=== PATIENT | female | born 1995 | race African-American/Black ===

== ENCOUNTER 2018-02-04 09:37 | Emergency (ER) | payer MEDICAID ==
[~2018-02-04] VITALS: Ht 157.5 cm; Wt 88.6 kg
[2018-02-04 09:39] VITALS: Ht 157.5 cm; Wt 88.6 kg
[2018-02-04] MEDS ORDERED: TORADOL10 MG PO (11:06)
[2018-02-04 11:30] VITALS: BP 118/68
== END 2018-02-04 11:29 | disposition home or self-care (01) ==
LOC: D.ER 09:37
DX: M54.2 Cervicalgia (principal); R07.81 Pleurodynia; V49.9XXA Car occupant (driver) (passenger) injured in unspecified traffic accident, initial encounter; Y93.89 Activity, other specified; Y92.410 Unspecified street and highway as the place of occurrence of the external cause; F17.200 Nicotine dependence, unspecified, uncomplicated